=== PATIENT | male | born 1950 | race Caucasian/White ===

== ENCOUNTER 2021-04-14 03:48 | Inpatient (IN) | payer MEDICAID ==
[~2021-04-14] VITALS: Ht 170.2 cm; Wt 67.7 kg
[2021-04-14 04:17] LABS: HEMATOCRIT 32.5 % (36.7-47.1); MEAN CORPUSCULAR HEMOGLOBIN 26.7 uug (23.8-33.4); MEAN CORPUSCULAR VOLUME 85.1 fL (73.0-96.2); PLATELET COUNT (AUTO) 600 K/uL (152-348)
[2021-04-14 04:27] LABS: CARBON DIOXIDE 26 mmol/L (21-32); CHLORIDE 98 mmol/L (98-107); CREATININE 0.8 mg/dL (0.6-1.3); GLUCOSE 151 mg/dL (74-106); POTASSIUM 4.3 mmol/L (3.5-5.1); UREA NITROGEN, BLOOD 22 mg/dL (7-18)
[2021-04-14 04:30] LABS: ETHANOL < 3 MG/DL (0-0)
[2021-04-14 04:32] LABS: ALANINE AMINOTRANSFERASE 52 U/L (16-63); ALKALINE PHOSPHATASE 100 U/L (50-136); ASPARTATE AMINOTRANSFERASE 32 U/L (15-37); BILIRUBIN,DIRECT 0.2 mg/dL (0.0-0.2); BILIRUBIN,TOTAL 0.5 mg/dL (0.2-1.0)
[2021-04-14 04:40] LABS: ABG BASE EXCESS -2.2 mmol/L; ABG HCO3 23.8 mmol/L; ABG PH 7.332 (7.350-7.450); ABG SITE RIGHT RADIAL; ABG TOTAL HEMOGLOBIN 11.3 G/dL (13.5-18.0); COHb 0.3 % (0.5-1.5); O2Hb 94.6 % (94.0-97.0); VENT MODE HF - Aquinox
[2021-04-14] MEDS ORDERED: POLY17PO4 GT (04:42)
[2021-04-14] MEDS ORDERED: FINA5TAB11 GT (04:42)
[2021-04-14] MEDS ORDERED: ALBU6.7H9 INH (04:42)
[2021-04-14] MEDS ORDERED: OMEP20CA15 GT (04:42)
[2021-04-14] MEDS ORDERED: ESCI10TA GT (04:42)
[2021-04-14] MEDS ORDERED: CHOL10005 GT (04:42)
[2021-04-14] MEDS ORDERED: ONDA-104 GT (04:42)
[2021-04-14] MEDS ORDERED: AMIN30LI2 GT (04:42)
[2021-04-14] MEDS ORDERED: ASPI81TA31 GT (04:42)
[2021-04-14] MEDS ORDERED: BACL10TA GT (04:42)
[2021-04-14] MEDS ORDERED: ENOX40DI SQ (04:42)
[2021-04-14] MEDS ORDERED: MULT-213 GT (04:42)
[2021-04-14] MEDS ORDERED: DEXT15DR6 OP (04:42)
[2021-04-14] MEDS ORDERED: DOCU100C36 GT (04:42)
[2021-04-14] MEDS ORDERED: MAGN400C GT (04:42)
[2021-04-14] MEDS ORDERED: ASCO-375 GT (04:42)
[2021-04-14] MEDS ORDERED: LEVO125T8 GT (04:42)
[2021-04-14] MEDS ORDERED: CRAN425C6 GT (04:42)
[2021-04-14] MEDS ORDERED: ATOR40TA GT (04:42)
[2021-04-14] MEDS ORDERED: ACET-73 GT (04:42)
[2021-04-14] MEDS ORDERED: TAMS-3 GT (04:42)
[2021-04-14] MEDS ORDERED: NOREPINEPHRINE BITARTRATE 8 MG in IV NORMAL SALINE 242 ML IV PRN ×2 (05:00→07:45)
[2021-04-14] MEDS ORDERED: CEFTRIAXONE 1 G in IV DEXTROSE 5% 50 ML IV ONE (05:00)
[2021-04-14] MEDS ORDERED: DEXAMETHASONE SOD PHOSPHATE 4 MG INJ IV ONE (05:00)
[2021-04-14] MEDS ORDERED: AZITHROMYCIN IV 500 MG in IV DEXTROSE 5% 250 ML IV ONE (05:00)
[2021-04-14] MEDS ORDERED: IV NS 1000 ML 1,000 ML IV ONE (05:00)
[2021-04-14] MEDS ORDERED: AZITHROMYCIN 500MG/ D5W 250ML IVPB **ER PYXIS ONLY IV ONE (05:08)
[2021-04-14] MEDS ORDERED: DEXAMETHASONE SOD PHOSPHATE 10 MG INJ ONE (05:08)
[2021-04-14] MEDS ORDERED: CEFTRIAXONE /D5W 50ML IVPB **ER PYXIS IV ONE (05:09)
[2021-04-14 05:10] LABS: BAND % (MANUAL) 18 % (0-10); LYMPHOCYTES % (MANUAL) 3 % (20-40); METAMYELOCYTES % 1 % (0-1); MONOCYTES % (MANUAL) 5 % (2-10); NEUTROPHILS % (MANUAL) 73 % (42-75)
[2021-04-14] MEDS ORDERED: ENOXAPARIN SODIUM 40 MG/0.4 ML DISP.SYRIN SQ ONE ×2 (10:45→11:04)
[2021-04-14] MEDS ORDERED: ALBUTEROL SULFATE 8 GM HFA.AER.AD INH PRN (13:15)
[2021-04-14] MEDS ORDERED: ONDANSETRON HCL 4 MG TABLET GT PRN (13:15)
[2021-04-14 13:34] LABS: *BILIRUBIN,URIN 1+ (NEGATIVE); *BLOOD, URINE NEGATIVE (NEGATIVE); *CLARITY,URINE CLEAR (CLEAR); *COLOR,URINE YELLOW (YELLOW); *KETONES,URINE TRACE (NEGATIVE); *UROBILINOGEN,URINE 0.2 E.U./dl (NORMAL); LEUKOCYTE ESTERASE ,URINE TRACE (NEGATIVE); NITRITE, URINE NEGATIVE (NEGATIVE); UGLUCOSE NEGATIVE (NEGATIVE)
[2021-04-14 13:47] LABS: *AMPHETAMINE, URINE NEGATIVE (NEGATIVE); *CANNABINOID, URINE NEGATIVE (NEGATIVE); *COCCAINE, URINE NEGATIVE (NEGATIVE); *OPIATE, URINE NEGATIVE (NEGATIVE); *PHENCYCLIDINE SCREEN,URINE NEGATIVE (NEGATIVE)
[2021-04-14] MEDS ORDERED: VANCOMYCIN IV 1,250 MG in IV DEXTROSE 5% 250 ML IV ONE (17:00)
[2021-04-14] MEDS ORDERED: POLYVINYL ALCOHOL OPHT DROPS 15 ML BOTTLE EACHEYE PRN (17:00)
[2021-04-14] MEDS ORDERED: BACLOFEN 10 MG TABLET ONE (17:05)
[2021-04-14] MEDS: PIPERACILLIN SODIUM/TAZOBACTAM 3.375 G in IV DEXTROSE 5% 50 ML IV SCH (17:11)
[2021-04-14] MEDS: BACLOFEN 10 MG TABLET GT SCH (17:11)
[2021-04-14 17:46] LABS: RBC,URINE 0-3 /HPF (0-3)
[2021-04-14 17:47] LABS: BACTERIA,URINE MODERATE /HPF (NONE SEEN); MUCUS,URINE FEW /LPF (0-FEW); SQUAMOUS EPITHELIAL CELL,UR NONE SEEN /HPF (NONE SEEN); TRIPLE PHOSPHATE CRYSTAL,UR FEW /HPF (NONE SEEN)
[2021-04-14 20:00] VITALS: BP 113/76
[2021-04-14] MEDS: DOCUSATE SODIUM 100 MG/10 ML LIQUID UDC PO SCH (20:54)
[2021-04-14] MEDS: ATORVASTATIN 40 MG TABLET GT SCH (20:54)
[2021-04-14] MEDS: DOXAZOSIN 1 MG TABLET GT SCH (20:55)
[2021-04-14] MEDS: PROTEIN SUPPLEMENT (PROSTAT) 30 ML LIQUID GT SCH (20:56)
[2021-04-14] MEDS: JEVITY 1.2 1000 ML LIQUID GT PRN (20:56)
[2021-04-14] MEDS ORDERED: Medication Not On Formulary EA (Amino Acids/Protein Hydrolys (Pro-Stat Liquid) 30 ML) GT SCH (21:00)
[2021-04-14] MEDS ORDERED: TAMSULOSIN HCL 0.4 MG CAP.SR.24H PO SCH (21:00)
[2021-04-14] MEDS: ACETAMINOPHEN 650 MG/20.3 ML LIQUID UDC GT PRN (21:45)
[2021-04-15] VITALS: BP 119/70
[2021-04-15] MEDS: PIPERACILLIN SODIUM/TAZOBACTAM 3.375 G in IV DEXTROSE 5% 50 ML IV SCH ×5 (00:08→23:40)
[2021-04-15] MEDS: VANCOMYCIN IV 1,000 MG in IV DEXTROSE 5% 250 ML IV SCH ×2 (04:00→17:55)
[2021-04-15 04:48] VITALS: BP 106/69
[2021-04-15 06:53] LABS: HEMATOCRIT 25.3 % (36.7-47.1); MEAN CORPUSCULAR HEMOGLOBIN 27.2 uug (23.8-33.4); PLATELET COUNT (AUTO) 494 K/uL (152-348)
[2021-04-15 07:36] LABS: BILIRUBIN,TOTAL 0.4 mg/dL (0.2-1.0); CREATININE 0.6 mg/dL (0.6-1.3); MAGNESIUM 2.1 mg/dL (1.8-2.4); PHOSPHOROUS 2.9 mg/dL (2.5-4.9); POTASSIUM 4.2 mmol/L (3.5-5.1); TOTAL PROTEIN, SERUM 6.7 g/dL (6.4-8.2)
[2021-04-15 08:30] VITALS: BP 99/65
[2021-04-15 08:35] LABS: THYROID STIMULATING HORMONE 1.224 mIU/mL (0.358-3.740)
[2021-04-15] MEDS ORDERED: Medication Not On Formulary EA (Multivitamins W-Minerals (Multivitamin With Minerals) 1 GT SCH (09:00)
[2021-04-15] MEDS ORDERED: Medication Not On Formulary EA (Cholecalciferol (Vitamin D3) (Vitamin D3) 2 TAB) GT SCH (09:00)
[2021-04-15] MEDS ORDERED: Z GUARD REMEDY PASTE 57 GM TUBE TOP PRN (10:15)
[2021-04-15] MEDS: MULTIVITAMINS,THERAPEUTIC TABLET GT SCH (10:37)
[2021-04-15] MEDS: CHOLECALCIFEROL 1,000 UNIT TABLET GT SCH (10:37)
[2021-04-15] MEDS: ASCORBIC ACID 500 MG TABLET GT SCH (10:37)
[2021-04-15] MEDS: FINASTERIDE 5 MG TABLET GT SCH (10:38)
[2021-04-15] MEDS: PANTOPRAZOLE ORAL SUSPENSION 40 MG SUSPDR.PKT GT SCH (10:40)
[2021-04-15] MEDS: MAGNESIUM OXIDE 400 MG TABLET GT SCH (10:40)
[2021-04-15] MEDS: ASPIRIN 81 MG TAB.CHEW GT SCH (10:42)
[2021-04-15] MEDS: ESCITALOPRAM OXALATE 10 MG TABLET GT SCH (10:42)
[2021-04-15] MEDS: MIRALAX 17 GM POWD.PACK GT SCH (10:42)
[2021-04-15] MEDS: LEVOTHYROXINE SODIUM 125 MCG TABLET GT SCH (10:42)
[2021-04-15] MEDS: BACLOFEN 10 MG TABLET GT SCH ×3 (10:42→17:54)
[2021-04-15] MEDS: ENOXAPARIN SODIUM 40 MG/0.4 ML DISP.SYRIN SQ SCH (10:46)
[2021-04-15 12:00] VITALS: BP 106/67
[2021-04-15] MEDS: SODIUM HYPOCHLORITE 0.125% (QUARTER STRENGTH) 473 ML BOTTLE TP SCH (12:05)
[2021-04-15 15:59] VITALS: BP 91/58
[2021-04-15] MEDS: ATORVASTATIN 40 MG TABLET GT SCH (20:39)
[2021-04-15] MEDS: ACETAMINOPHEN 650 MG/20.3 ML LIQUID UDC GT PRN (20:42)
[2021-04-15] MEDS: DOCUSATE SODIUM 100 MG/10 ML LIQUID UDC PO SCH (20:42)
[2021-04-15] MEDS: DOXAZOSIN 1 MG TABLET GT SCH (20:42)
[2021-04-15] MEDS: PROTEIN SUPPLEMENT (PROSTAT) 30 ML LIQUID GT SCH (20:43)
[2021-04-15] MEDS: Z GUARD REMEDY PASTE 57 GM TUBE TOP SCH (20:43)
[2021-04-15 20:56] VITALS: BP 105/99
[2021-04-16 00:37] VITALS: BP 97/47
[2021-04-16] MEDS: JEVITY 1.2 1000 ML LIQUID GT PRN (01:00)
[2021-04-16 04:28] VITALS: BP 111/68
[2021-04-16] MEDS: VANCOMYCIN IV 1,000 MG in IV DEXTROSE 5% 250 ML IV SCH ×2 (04:43→17:00)
[2021-04-16] MEDS: PIPERACILLIN SODIUM/TAZOBACTAM 3.375 G in IV DEXTROSE 5% 50 ML IV SCH ×3 (06:32→17:31)
[2021-04-16 07:43] LABS: HEMATOCRIT 25.3 % (36.7-47.1); MEAN CORPUSCULAR HEMOGLOBIN 26.8 uug (23.8-33.4); PLATELET COUNT (AUTO) 429 K/uL (152-348)
[2021-04-16 07:46] LABS: CREATININE 0.6 mg/dL (0.6-1.3); MAGNESIUM 2.1 mg/dL (1.8-2.4); PHOSPHOROUS 3.4 mg/dL (2.5-4.9); POTASSIUM 3.9 mmol/L (3.5-5.1)
[2021-04-16] MEDS: BACLOFEN 10 MG TABLET GT SCH ×3 (08:33→17:31)
[2021-04-16] MEDS: ASCORBIC ACID 500 MG TABLET GT SCH (08:33)
[2021-04-16] MEDS: MULTIVITAMINS,THERAPEUTIC TABLET GT SCH (08:33)
[2021-04-16] MEDS: PANTOPRAZOLE ORAL SUSPENSION 40 MG SUSPDR.PKT GT SCH (08:33)
[2021-04-16] MEDS: ASPIRIN 81 MG TAB.CHEW GT SCH (08:33)
[2021-04-16] MEDS: MIRALAX 17 GM POWD.PACK GT SCH (08:33)
[2021-04-16] MEDS: MAGNESIUM OXIDE 400 MG TABLET GT SCH (08:33)
[2021-04-16] MEDS: CHOLECALCIFEROL 1,000 UNIT TABLET GT SCH (08:33)
[2021-04-16] MEDS: Z GUARD REMEDY PASTE 57 GM TUBE TOP SCH ×2 (08:34→21:27)
[2021-04-16] MEDS: ENOXAPARIN SODIUM 40 MG/0.4 ML DISP.SYRIN SQ SCH (08:34)
[2021-04-16 08:38] VITALS: BP 116/70
[2021-04-16] MEDS: FINASTERIDE 5 MG TABLET GT SCH (08:41)
[2021-04-16] MEDS: ESCITALOPRAM OXALATE 10 MG TABLET GT SCH (08:41)
[2021-04-16] MEDS: LEVOTHYROXINE SODIUM 125 MCG TABLET GT SCH (08:41)
[2021-04-16] MEDS: SODIUM HYPOCHLORITE 0.125% (QUARTER STRENGTH) 473 ML BOTTLE TP SCH (08:42)
[2021-04-16 12:41] VITALS: BP 107/65
[2021-04-16 18:01] VITALS: BP 114/78
[2021-04-16] MEDS ORDERED: PIPERACILLIN SODIUM/TAZOBACTAM 3.375 G in IV DEXTROSE 5% 50 ML IV SCH (20:00)
[2021-04-16 20:03] VITALS: BP 128/78
[2021-04-16] MEDS: DOXAZOSIN 1 MG TABLET GT SCH (21:24)
[2021-04-16] MEDS: DOCUSATE SODIUM 100 MG/10 ML LIQUID UDC PO SCH (21:27)
[2021-04-16] MEDS: PROTEIN SUPPLEMENT (PROSTAT) 30 ML LIQUID GT SCH (21:27)
[2021-04-17] MEDS: PIPERACILLIN SODIUM/TAZOBACTAM 3.375 G in IV DEXTROSE 5% 50 ML IV SCH ×4 (00:01→18:08)
[2021-04-17 00:31] VITALS: BP 144/77
[2021-04-17 04:38] VITALS: BP 127/68
[2021-04-17] MEDS: VANCOMYCIN IV 1,000 MG in IV DEXTROSE 5% 250 ML IV SCH ×2 (04:45→16:45)
[2021-04-17 06:43] LABS: HEMATOCRIT 25.8 % (36.7-47.1); MEAN CORPUSCULAR HEMOGLOBIN 26.9 uug (23.8-33.4); MEAN CORPUSCULAR VOLUME 83.7 fL (73.0-96.2); PLATELET COUNT (AUTO) 472 K/uL (152-348)
[2021-04-17 07:08] LABS: ALANINE AMINOTRANSFERASE 47 U/L (16-63); ALKALINE PHOSPHATASE 75 U/L (50-136); ASPARTATE AMINOTRANSFERASE 48 U/L (15-37); BILIRUBIN,TOTAL 0.5 mg/dL (0.2-1.0); CARBON DIOXIDE 30 mmol/L (21-32); CHLORIDE 102 mmol/L (98-107); CREATININE 0.5 mg/dL (0.6-1.3); GLUCOSE 127 mg/dL (74-106); MAGNESIUM 2.3 mg/dL (1.8-2.4); PHOSPHOROUS 3.2 mg/dL (2.5-4.9); POTASSIUM 3.9 mmol/L (3.5-5.1); TOTAL PROTEIN, SERUM 6.8 g/dL (6.4-8.2); UREA NITROGEN, BLOOD 18 mg/dL (7-18)
[2021-04-17] MEDS: ASCORBIC ACID 500 MG TABLET GT SCH (09:08)
[2021-04-17] MEDS: FINASTERIDE 5 MG TABLET GT SCH (09:08)
[2021-04-17] MEDS: ASPIRIN 81 MG TAB.CHEW GT SCH (09:09)
[2021-04-17] MEDS: CHOLECALCIFEROL 1,000 UNIT TABLET GT SCH (09:09)
[2021-04-17] MEDS: MAGNESIUM OXIDE 400 MG TABLET GT SCH (09:09)
[2021-04-17] MEDS: MIRALAX 17 GM POWD.PACK GT SCH (09:09)
[2021-04-17] MEDS: BACLOFEN 10 MG TABLET GT SCH ×3 (09:09→16:45)
[2021-04-17] MEDS: SODIUM HYPOCHLORITE 0.125% (QUARTER STRENGTH) 473 ML BOTTLE TP SCH (09:09)
[2021-04-17] MEDS: LEVOTHYROXINE SODIUM 125 MCG TABLET GT SCH (09:09)
[2021-04-17] MEDS: PANTOPRAZOLE ORAL SUSPENSION 40 MG SUSPDR.PKT GT SCH (09:09)
[2021-04-17] MEDS: MULTIVITAMINS,THERAPEUTIC TABLET GT SCH (09:09)
[2021-04-17] MEDS: ESCITALOPRAM OXALATE 10 MG TABLET GT SCH (09:09)
[2021-04-17] MEDS: Z GUARD REMEDY PASTE 57 GM TUBE TOP SCH ×2 (09:10→21:57)
[2021-04-17] MEDS: ENOXAPARIN SODIUM 40 MG/0.4 ML DISP.SYRIN SQ SCH (09:11)
[2021-04-17] MEDS ORDERED: PROTEIN SUPPLEMENT (PROSTAT) 30 ML LIQUID GT SCH (09:45)
[2021-04-17 12:01] VITALS: BP 120/88
[2021-04-17] MEDS: PROTEIN SUPPLEMENT (PROSTAT) 30 ML LIQUID GT SCH ×2 (12:40→16:45)
[2021-04-17 16:55] VITALS: BP 119/79
[2021-04-17] MEDS ORDERED: FUROSEMIDE 20 MG/2 ML VIAL IV ONE (20:15)
[2021-04-17 20:53] VITALS: BP 152/80
[2021-04-17] MEDS: DOXAZOSIN 1 MG TABLET GT SCH (21:56)
[2021-04-17] MEDS: DOCUSATE SODIUM 100 MG/10 ML LIQUID UDC PO SCH (21:57)
[2021-04-18] MEDS: ACETAMINOPHEN 650 MG/20.3 ML LIQUID UDC GT PRN (00:03)
[2021-04-18] MEDS: PIPERACILLIN SODIUM/TAZOBACTAM 3.375 G in IV DEXTROSE 5% 50 ML IV SCH ×4 (00:06→18:01)
[2021-04-18 00:20] VITALS: BP 126/73
[2021-04-18] MEDS: VANCOMYCIN IV 1,000 MG in IV DEXTROSE 5% 250 ML IV SCH ×2 (04:42→16:04)
[2021-04-18 07:01] LABS: HEMATOCRIT 23.7 % (36.7-47.1); MEAN CORPUSCULAR HEMOGLOBIN 27.2 uug (23.8-33.4); MEAN CORPUSCULAR VOLUME 83.6 fL (73.0-96.2); PLATELET COUNT (AUTO) 466 K/uL (152-348)
[2021-04-18 07:20] LABS: NEUTROPHILS % (MANUAL) 0 % (42-75)
[2021-04-18 07:58] LABS: CARBON DIOXIDE 33 mmol/L (21-32); CHLORIDE 100 mmol/L (98-107); CREATININE 0.5 mg/dL (0.6-1.3); GLUCOSE 141 mg/dL (74-106); MAGNESIUM 2.1 mg/dL (1.8-2.4); PHOSPHOROUS 3.4 mg/dL (2.5-4.9); POTASSIUM 3.7 mmol/L (3.5-5.1); UREA NITROGEN, BLOOD 17 mg/dL (7-18)
[2021-04-18] MEDS: PANTOPRAZOLE ORAL SUSPENSION 40 MG SUSPDR.PKT GT SCH (09:14)
[2021-04-18] MEDS: MAGNESIUM OXIDE 400 MG TABLET GT SCH (09:15)
[2021-04-18] MEDS: PROTEIN SUPPLEMENT (PROSTAT) 30 ML LIQUID GT SCH ×3 (09:15→16:04)
[2021-04-18] MEDS: ASPIRIN 81 MG TAB.CHEW GT SCH (09:15)
[2021-04-18] MEDS: BACLOFEN 10 MG TABLET GT SCH ×3 (09:16→16:04)
[2021-04-18] MEDS: MIRALAX 17 GM POWD.PACK GT SCH (09:16)
[2021-04-18] MEDS: Z GUARD REMEDY PASTE 57 GM TUBE TOP SCH ×2 (09:16→21:57)
[2021-04-18] MEDS: ENOXAPARIN SODIUM 40 MG/0.4 ML DISP.SYRIN SQ SCH (09:16)
[2021-04-18] MEDS: MULTIVITAMINS,THERAPEUTIC TABLET GT SCH (09:16)
[2021-04-18] MEDS: CHOLECALCIFEROL 1,000 UNIT TABLET GT SCH (09:16)
[2021-04-18] MEDS: ASCORBIC ACID 500 MG TABLET GT SCH (09:16)
[2021-04-18] MEDS: SODIUM HYPOCHLORITE 0.125% (QUARTER STRENGTH) 473 ML BOTTLE TP SCH (09:16)
[2021-04-18] MEDS: FINASTERIDE 5 MG TABLET GT SCH (09:18)
[2021-04-18] MEDS: LEVOTHYROXINE SODIUM 125 MCG TABLET GT SCH (09:20)
[2021-04-18] MEDS: ESCITALOPRAM OXALATE 10 MG TABLET GT SCH (09:24)
[2021-04-18 12:00] VITALS: BP 137/89
[2021-04-18 16:00] VITALS: BP 140/93
[2021-04-18] MEDS: JEVITY 1.2 1000 ML LIQUID GT PRN (16:19)
[2021-04-18] MEDS: DOCUSATE SODIUM 100 MG/10 ML LIQUID UDC PO SCH (21:00)
[2021-04-18 21:05] VITALS: BP 128/71
[2021-04-18] MEDS: DOXAZOSIN 1 MG TABLET GT SCH (22:17)
[2021-04-19] MEDS: PIPERACILLIN SODIUM/TAZOBACTAM 3.375 G in IV DEXTROSE 5% 50 ML IV SCH ×4 (00:04→18:15)
[2021-04-19 00:27] VITALS: BP 132/66
[2021-04-19 04:21] LABS: CARBON DIOXIDE 33 mmol/L (21-32); CHLORIDE 101 mmol/L (98-107); CREATININE 0.4 mg/dL (0.6-1.3); GLUCOSE 106 mg/dL (74-106); POTASSIUM 4.3 mmol/L (3.5-5.1); UREA NITROGEN, BLOOD 17 mg/dL (7-18)
[2021-04-19 04:57] VITALS: BP 126/64
[2021-04-19] MEDS: VANCOMYCIN IV 1,000 MG in IV DEXTROSE 5% 250 ML IV SCH ×2 (05:15→16:27)
[2021-04-19 08:00] VITALS: BP 145/89
[2021-04-19] MEDS: ENOXAPARIN SODIUM 40 MG/0.4 ML DISP.SYRIN SQ SCH (09:29)
[2021-04-19] MEDS: MIRALAX 17 GM POWD.PACK GT SCH (09:29)
[2021-04-19] MEDS: FINASTERIDE 5 MG TABLET GT SCH (09:29)
[2021-04-19] MEDS: ASCORBIC ACID 500 MG TABLET GT SCH (09:30)
[2021-04-19] MEDS: LEVOTHYROXINE SODIUM 125 MCG TABLET GT SCH (09:30)
[2021-04-19] MEDS: ESCITALOPRAM OXALATE 10 MG TABLET GT SCH (09:30)
[2021-04-19] MEDS: MAGNESIUM OXIDE 400 MG TABLET GT SCH (09:30)
[2021-04-19] MEDS: CHOLECALCIFEROL 1,000 UNIT TABLET GT SCH (09:30)
[2021-04-19] MEDS: BACLOFEN 10 MG TABLET GT SCH ×3 (09:30→16:27)
[2021-04-19] MEDS: ASPIRIN 81 MG TAB.CHEW GT SCH (09:30)
[2021-04-19] MEDS: MULTIVITAMINS,THERAPEUTIC TABLET GT SCH (09:30)
[2021-04-19] MEDS: Z GUARD REMEDY PASTE 57 GM TUBE TOP SCH ×2 (09:31→21:00)
[2021-04-19] MEDS: SODIUM HYPOCHLORITE 0.125% (QUARTER STRENGTH) 473 ML BOTTLE TP SCH (09:31)
[2021-04-19] MEDS: PANTOPRAZOLE ORAL SUSPENSION 40 MG SUSPDR.PKT GT SCH (09:32)
[2021-04-19] MEDS: PROTEIN SUPPLEMENT (PROSTAT) 30 ML LIQUID GT SCH ×3 (09:32→16:28)
[2021-04-19 12:35] VITALS: BP 140/91
[2021-04-19] MEDS ORDERED: IV NORMAL SALINE 250 ML IV ONE (13:56)
[2021-04-19] MEDS ORDERED: SWABABLE VALVE TRANSFER SET EA MC ONE (13:56)
[2021-04-19] MEDS ORDERED: IOHEXOL 350 100 ML INFUS..BTL ONE (13:56)
[2021-04-19 16:35] VITALS: BP 104/84
[2021-04-19 20:29] VITALS: BP 136/84
[2021-04-19] MEDS: DOCUSATE SODIUM 100 MG/10 ML LIQUID UDC PO SCH (22:12)
[2021-04-19] MEDS: DOXAZOSIN 1 MG TABLET GT SCH (22:12)
[2021-04-20] MEDS: PIPERACILLIN SODIUM/TAZOBACTAM 3.375 G in IV DEXTROSE 5% 50 ML IV SCH ×5 (00:49→23:07)
[2021-04-20] MEDS: JEVITY 1.2 1000 ML LIQUID GT PRN (01:50)
[2021-04-20 04:22] VITALS: BP 131/83
[2021-04-20] MEDS: VANCOMYCIN IV 1,000 MG in IV DEXTROSE 5% 250 ML IV SCH ×2 (04:58→18:00)
[2021-04-20 07:05] LABS: HEMATOCRIT 24.4 % (36.7-47.1); MEAN CORPUSCULAR HEMOGLOBIN 28.6 uug (23.8-33.4); MEAN CORPUSCULAR VOLUME 84.2 fL (73.0-96.2); PLATELET COUNT (AUTO) 474 K/uL (152-348)
[2021-04-20 07:10] LABS: CARBON DIOXIDE 34 mmol/L (21-32); CHLORIDE 101 mmol/L (98-107); CREATININE 0.4 mg/dL (0.6-1.3); GLUCOSE 135 mg/dL (74-106); PHOSPHOROUS 3.3 mg/dL (2.5-4.9); POTASSIUM 3.9 mmol/L (3.5-5.1); UREA NITROGEN, BLOOD 14 mg/dL (7-18)
[2021-04-20] MEDS: FINASTERIDE 5 MG TABLET GT SCH (09:44)
[2021-04-20] MEDS: CHOLECALCIFEROL 1,000 UNIT TABLET GT SCH (09:44)
[2021-04-20] MEDS: ASPIRIN 81 MG TAB.CHEW GT SCH (09:44)
[2021-04-20] MEDS: LEVOTHYROXINE SODIUM 125 MCG TABLET GT SCH (09:44)
[2021-04-20] MEDS: ASCORBIC ACID 500 MG TABLET GT SCH (09:44)
[2021-04-20] MEDS: MIRALAX 17 GM POWD.PACK GT SCH (09:44)
[2021-04-20] MEDS: MULTIVITAMINS,THERAPEUTIC TABLET GT SCH (09:44)
[2021-04-20] MEDS: MAGNESIUM OXIDE 400 MG TABLET GT SCH (09:44)
[2021-04-20] MEDS: PANTOPRAZOLE ORAL SUSPENSION 40 MG SUSPDR.PKT GT SCH (09:44)
[2021-04-20] MEDS: ENOXAPARIN SODIUM 40 MG/0.4 ML DISP.SYRIN SQ SCH (09:45)
[2021-04-20] MEDS: BACLOFEN 10 MG TABLET GT SCH ×3 (09:45→17:59)
[2021-04-20] MEDS: ESCITALOPRAM OXALATE 10 MG TABLET GT SCH (09:45)
[2021-04-20] MEDS: SODIUM HYPOCHLORITE 0.125% (QUARTER STRENGTH) 473 ML BOTTLE TP SCH (09:46)
[2021-04-20] MEDS: Z GUARD REMEDY PASTE 57 GM TUBE TOP SCH ×2 (09:47→20:53)
[2021-04-20] MEDS: PROTEIN SUPPLEMENT (PROSTAT) 30 ML LIQUID GT SCH ×3 (09:48→18:00)
[2021-04-20 12:43] VITALS: BP 113/61
[2021-04-20 16:31] VITALS: BP 136/74
[2021-04-20] MEDS ORDERED: CEFE2FRO IV (17:28)
[2021-04-20] MEDS ORDERED: SODI473S8 TP (17:28)
[2021-04-20] MEDS ORDERED: VANC1PLA9 IV (17:28)
[2021-04-20] MEDS ORDERED: PROT30LI GT (17:28)
[2021-04-20] MEDS ORDERED: DOXA1TAB GT (17:28)
[2021-04-20] MEDS: ACETAMINOPHEN 650 MG/20.3 ML LIQUID UDC GT PRN (18:01)
[2021-04-20 20:00] VITALS: BP 138/84
[2021-04-20] MEDS: DOXAZOSIN 1 MG TABLET GT SCH (20:48)
[2021-04-20] MEDS: DOCUSATE SODIUM 100 MG/10 ML LIQUID UDC PO SCH (20:48)
[2021-04-21 04:00] VITALS: BP 108/78
[2021-04-21] MEDS: VANCOMYCIN IV 1,000 MG in IV DEXTROSE 5% 250 ML IV SCH (04:04)
[2021-04-21] MEDS: PIPERACILLIN SODIUM/TAZOBACTAM 3.375 G in IV DEXTROSE 5% 50 ML IV SCH ×2 (05:46→11:50)
[2021-04-21 07:20] LABS: HEMATOCRIT 24.7 % (36.7-47.1); MEAN CORPUSCULAR HEMOGLOBIN 26.4 uug (23.8-33.4); MEAN CORPUSCULAR VOLUME 84.2 fL (73.0-96.2); PLATELET COUNT (AUTO) 496 K/uL (152-348)
[2021-04-21 07:34] LABS: CARBON DIOXIDE 34 mmol/L (21-32); CHLORIDE 101 mmol/L (98-107); CREATININE 0.5 mg/dL (0.6-1.3); GLUCOSE 118 mg/dL (74-106); MAGNESIUM 2.2 mg/dL (1.8-2.4); PHOSPHOROUS 3.4 mg/dL (2.5-4.9); POTASSIUM 4.3 mmol/L (3.5-5.1); UREA NITROGEN, BLOOD 13 mg/dL (7-18)
[2021-04-21] MEDS: ENOXAPARIN SODIUM 40 MG/0.4 ML DISP.SYRIN SQ SCH (08:18)
[2021-04-21] MEDS: MIRALAX 17 GM POWD.PACK GT SCH (08:19)
[2021-04-21] MEDS: ASPIRIN 81 MG TAB.CHEW GT SCH (08:20)
[2021-04-21] MEDS: CHOLECALCIFEROL 1,000 UNIT TABLET GT SCH (08:20)
[2021-04-21] MEDS: PANTOPRAZOLE ORAL SUSPENSION 40 MG SUSPDR.PKT GT SCH (08:20)
[2021-04-21] MEDS: ESCITALOPRAM OXALATE 10 MG TABLET GT SCH (08:20)
[2021-04-21] MEDS: ASCORBIC ACID 500 MG TABLET GT SCH (08:20)
[2021-04-21] MEDS: MAGNESIUM OXIDE 400 MG TABLET GT SCH (08:20)
[2021-04-21] MEDS: LEVOTHYROXINE SODIUM 125 MCG TABLET GT SCH (08:20)
[2021-04-21] MEDS: FINASTERIDE 5 MG TABLET GT SCH (08:20)
[2021-04-21] MEDS: MULTIVITAMINS,THERAPEUTIC TABLET GT SCH (08:20)
[2021-04-21] MEDS: BACLOFEN 10 MG TABLET GT SCH ×3 (08:21→16:57)
[2021-04-21] MEDS: Z GUARD REMEDY PASTE 57 GM TUBE TOP SCH (08:21)
[2021-04-21] MEDS: SODIUM HYPOCHLORITE 0.125% (QUARTER STRENGTH) 473 ML BOTTLE TP SCH (08:22)
[2021-04-21] MEDS: PROTEIN SUPPLEMENT (PROSTAT) 30 ML LIQUID GT SCH ×3 (08:22→16:57)
[2021-04-21 11:00] VITALS: BP 123/76
[2021-04-21 17:15] VITALS: BP 112/69
[2021-04-21 17:24] VITALS: BP 135/69
== END 2021-04-21 18:00 | DRG 720 ==
LOC: ER 03:54 → UNDOADMIN 13:19 → TRANSITION 13:19 → MEDSURG3 18:42 → TELE3 19:34 → MEDSURG3 04-19 16:45
PROVIDERS: ADMIT Internal Medicine; ATTEND Internal Medicine
DX: A41.9 Sepsis, unspecified organism (principal); J96.01 Acute respiratory failure with hypoxia; J69.0 Pneumonitis due to inhalation of food and vomit; I50.33 Acute on chronic diastolic (congestive) heart failure; G92.8 Other toxic encephalopathy; L89.154 Pressure ulcer of sacral region, stage 4; I11.0 Hypertensive heart disease with heart failure; R65.20 Severe sepsis without septic shock; K21.9 Gastro-esophageal reflux disease without esophagitis; D75.839 Thrombocytosis, unspecified; I25.10 Atherosclerotic heart disease of native coronary artery without angina pectoris; N40.0 Benign prostatic hyperplasia without lower urinary tract symptoms; E88.09 Other disorders of plasma-protein metabolism, not elsewhere classified; E43 Unspecified severe protein-calorie malnutrition; E03.9 Hypothyroidism, unspecified; J44.9 Chronic obstructive pulmonary disease, unspecified; I45.2 Bifascicular block; M19.90 Unspecified osteoarthritis, unspecified site; M24.50 Contracture, unspecified joint; D64.9 Anemia, unspecified; F01.50 Vascular dementia, unspecified severity, without behavioral disturbance, psychotic disturbance, mood disturbance, and anxiety; Z87.891 Personal history of nicotine dependence; I69.391 Dysphagia following cerebral infarction; R13.10 Dysphagia, unspecified; Z93.1 Gastrostomy status; F32.A Depression, unspecified; Z20.822 Contact with and (suspected) exposure to COVID-19
CPT/HCPCS: 36415; 36600; 51702; 70030-TC; 71045; 71275; 83605; 83735; 84100; 84443; 85025; 85730; 87040; 87070; 87086; 93005; 93307; 94760; A4217; A4663; A6209; G0378; G0480; J0456; J0696; J1100; J1650; J1940; J2543; J3370; J3535; J7030; J7040; J7050; J7060; Q9967; U0003